=== PATIENT | male | born 1990 ===

== ENCOUNTER 2017-09-29 23:40 | Emergency (ER) | payer BC ==
[~2017-09-29] VITALS: Ht 185.4 cm; Wt 79.6 kg
[2017-09-29 23:43] VITALS: TEMP 36.8; Ht 185.4 cm; Wt 79.6 kg
[2017-09-30] MEDS ORDERED: MULT1PAK42 PO (00:08)
[2017-09-30] MEDS ORDERED: ONDANSETRON INJ 2 MG/ML 2 ML VIAL IV STA ×2 (00:15→01:23)
[2017-09-30] MEDS ORDERED: SODIUM CHLORIDE 0.9% 1000ML 1,000 ML IV STA ×2 (00:15→01:21)
--- NOTE | 2017-09-30 00:17 | EMERGENCY ROOM VISIT NOTE ---
History Report prepared by Hyun: Kendra Lobo Under the Supervision of: Dr. Rochelle Andre D.O. First contact with patient: 23:50 Chief Complaint: VOMITING Stated Complaint: THROWING UP MULTIPLE TIMES,DIZZY,DIARRHEA History of Present Illness The patient is a 27 year old male who presents to the Emergency Room with complaints of intermittent vomiting beginning at 7 pm last night, about five hours ago. The patient reports his first episode of vomiting at 7pm was so aggressive that he collapsed and couldn't hear until the episode was over. He has been vomiting every 20 minutes since the first episode. He reports diarrhea beginning three hours ago. He denies any recent sick contact. He notes chills and nausea but denies any fever, abdominal pain, sore throat, cough, urinary symptoms, or leg cramping. The patient is a law student. Source of History: patient Onset: five hours ago Position: other (generalized) Quality: other (vomiting) Timing: intermittent Associated Symptoms: + chills, + nausea, + vomiting, No fevers, No sorethroat, No cough, No abdominal pain, No diarrhea, No urinary symptoms Review of Systems See HPI for pertinent positives & negatives. A total of 10 systems reviewed and were otherwise negative. Past Medical & Surgical Medical Problems: (1) Asthma Family History Cancer Lung disease Social History Smoking Status: Never Smoker Smokeless Tobacco Use: No Alcohol Use: occasionally Housing Status: lives with roommate Occupation Status: student Current/Historical Medications Scheduled PRN Multiple Vitamins W/ Minerals (Emergen-C Immune), 1 DOSE PO DIRECTED PRN for COLD SEASON Allergies Coded Allergies: No Known Allergies (Unverified , 09/30/17) Physical Exam Vital Signs Date Time Temp Pulse Resp B/P (MAP) Pulse Ox O2 Delivery O2 Flow Rate FiO2 09/30/17 06:40 84 18 115/70 98 09/30/17 05:19 78 18 111/58 98 Room Air 09/30/17 03:24 105/58 09/30/17 01:18 75 16 131/70 98 Room Air 09/29/17 23:43 36.8 93 16 119/70 99 Room Air Physical Exam HEENT: Head - normocephalic and atraumatic Pupils are equal, round, and reactive to light. Extraocular eye muscles are intact, and sclera are anicteric. Nose - moist nasal mucosa without discharge. Mouth - moist buccal mucosa. Oropharynx is nonerythematous and there is no tonsillar exudate or edema noted. Neck: Supple; no JVD, nuchal rigidity, cervical lymphadenopathy. Heart: Regular rate and rhythm. There is a normal S1 and S2 with no murmurs, clicks, or gallops appreciated. Lungs: Clear to auscultation bilaterally with no wheezes, rales, or rhonchi. Abdomen: Soft, completely nontender, nondistended, with good bowel sounds. There are no palpable pulsatile masses or hepatosplenomegaly. There is no guarding, rigidity, or rebound noted. Extremities: No evidence of cyanosis, clubbing, or edema. There are easily palpable peripheral pulses. Skin: pale and diaphoretic, with good turgor and no rashes. Medical Decision & Procedures Laboratory Results 09/30/17 00:00 Red Blood Count 6.17, Mean Corpuscular Volume 84.1, Mean Corpuscular Hemoglobin 30.0, Mean Corpuscular Hemoglobin Concent 35.6, Mean Platelet Volume 11.7, Neutrophils (%) (Auto) 90.1, Lymphocytes (%) (Auto) 3.0, Monocytes (%) (Auto) 6.4, Eosinophils (%) (Auto) 0.2, Basophils (%) (Auto) 0.1, Neutrophils # (Auto) 14.66, Lymphocytes # (Auto) 0.49, Monocytes # (Auto) 1.04, Eosinophils # (Auto) 0.04, Basophils # (Auto) 0.01 09/30/17 00:00 Test 09/30/17 00:00 09/30/17 00:25 White Blood Count 16.27 K/uL (4.8-10.8) Red Blood Count 6.17 M/uL (4.7-6.1) Hemoglobin 18.5 g/dL (14.0-18.0) Hematocrit 51.9 % (42-52) Mean Corpuscular Volume 84.1 fL (80-100) Mean Corpuscular Hemoglobin 30.0 pg (25-34) Mean Corpuscular Hemoglobin Concent 35.6 g/dl (32-36) Platelet Count 267 K/uL (130-400) Mean Platelet Volume 11.7 fL (7.4-10.4) Neutrophils (%) (Auto) 90.1 % Lymphocytes (%) (Auto) 3.0 % Monocytes (%) (Auto) 6.4 % Eosinophils (%) (Auto) 0.2 % Basophils (%) (Auto) 0.1 % Neutrophils # (Auto) 14.66 K/uL (1.4-6.5) Lymphocytes # (Auto) 0.49 K/uL (1.2-3.4) Monocytes # (Auto) 1.04 K/uL (0.11-0.59) Eosinophils # (Auto) 0.04 K/uL (0-0.5) Basophils # (Auto) 0.01 K/uL (0-0.2) RDW Standard Deviation 39.4 fL (36.4-46.3) RDW Coefficient of Variation 12.9 % (11.5-14.5) Immature Granulocyte % (Auto) 0.2 % Immature Granulocyte # (Auto) 0.03 K/uL (0.00-0.02) Anion Gap 8.0 mmol/L (3-11) Est Creatinine Clear Calc Drug Dose 90.2 ml/min Estimated GFR () 79.7 Estimated GFR (Non- 68.7 BUN/Creatinine Ratio 12.9 (10-20) Calcium Level 9.1 mg/dl (8.5-10.1) Total Bilirubin 1.2 mg/dl (0.2-1) Aspartate Amino Transf (AST/SGOT) 12 U/L (15-37) Alanine Aminotransferase (ALT/SGPT) 22 U/L (12-78) Alkaline Phosphatase 72 U/L (45-117) Total Protein 8.1 gm/dl (6.4-8.2) Albumin 5.0 gm/dl (3.4-5.0) Globulin 3.1 gm/dl (2.5-4.0) Albumin/Globulin Ratio 1.6 (0.9-2) Lipase 66 U/L (73-393) Urine Color DK YELLOW Urine Appearance CLEAR (CLEAR) Urine pH 5.5 (4.5-7.5) Urine Specific [place] 1.032 (1.000-1.030) Urine Protein NEG (NEG) Urine Glucose (UA) NEG (NEG) Urine Ketones 2+ (NEG) Urine Occult Blood NEG (NEG) Urine Nitrite NEG (NEG) Urine Bilirubin NEG (NEG) Urine Urobilinogen NEG (NEG) Urine Leukocyte Esterase TRACE (NEG) Urine WBC (Auto) 1-5 /hpf (0-5) Urine RBC (Auto) 0-4 /hpf (0-4) Urine Hyaline Casts (Auto) 1-5 /lpf (0-5) Urine Epithelial Cells (Auto) 5-10 /lpf (0-5) Urine Bacteria (Auto) NEG (NEG) Laboratory results per my review. Medications Administered Medications (Trade) Dose Ordered Sig/J Carlos Route Start Time Stop Time Status Last Admin Dose Admin Sodium Chloride 1,000 ml @ 999 mls/hr Q1H1M STAT IV 09/30/17 00:15 09/30/17 01:15 DC 09/30/17 00:24 999 MLS/HR Ondansetron HCl (Zofran Inj) 4 mg NOW STAT IV 09/30/17 00:15 09/30/17 00:16 DC 09/30/17 00:24 4 MG Sodium Chloride 1,000 ml @ 999 mls/hr Q1H1M STAT IV 09/30/17 01:21 09/30/17 02:21 DC 09/30/17 01:28 999 MLS/HR Ondansetron HCl (Zofran Inj) 4 mg NOW STAT IV 09/30/17 01:23 09/30/17 01:24 DC 09/30/17 01:28 4 MG Ondansetron HCl (ZOFRAN ODT 4MG Home Pack) 1 homepack UD ONCE PO 09/30/17 03:30 09/30/17 03:31 DC 09/30/17 06:37 1 HOMEPACK Promethazine HCl 12.5 mg/Sodium Chloride 50.5 ml @ 204 mls/hr NOW STAT IV 09/30/17 03:51 09/30/17 04:05 DC 09/30/17 04:03 204 MLS/HR Procedure Zofran Inj IV, NSS IV, Promethazine HCl 12.5 mg/Sodium Chloride IV ED Course 0006: Past medical records reviewed. The patient was evaluated in room A10. A complete history and physical exam was performed. Laboratory studies were drawn as above. 0015: Ordered Zofran Inj 4 mg IV, Sodium Chloride 1000 ml @ 999 mls/hr IV. 0028: the patient was able to provide a stool specimen. 0121: Ordered Sodium Chloride 1000 ml @ 999 mls/hr IV. 0122: On reassessment, the patient reports he was feeling much better; however, he is just starting to feel nauseated again. 0123: Ordered Zofran Inj 4 mg IV. 0204: The patient is sleeping. 0230: The patient is awake. He will try water and crackers. 0317: The patent was able to tolerate water however he is still nauseated. 0321: The patients's friend is in waiting room. The patient would like to go home with some nausea medication. 0330: Ordered Ondansetron HCl 1 homepack PO. 0345: On reassessment, the patient is still not feeling well. After a long discussion he would like to stay in the hospital to get his nausea under control. 0351: Ordered Promethazine HCl 12.5 mg/Sodium Chloride 50.5 ml @ 204 mls/hr. 0605: The patient was drinking water without any difficulties. He is feeling much better. 0622: The patient is ready to go home. 0631: Upon reevaluation, the patient is resting comfortably. I discussed findings and results with him. He verbalized agreement of the treatment plan. The patient was discharged home. Medical Decision The patient is a 27 year old male who presents to the Emergency Room with complaints of intermittent vomiting beginning at 7 pm last night, about five hours ago. Differential diagnosis includes gastroenteritis, food borne illness , dehydration, and electrolyte abnormality. Lab results show: urinalysis 2+ ketones with trace leukoesterase, negative bacteria or white blood cells, lipase 66, total bilirubin 1.2, transaminases are normal, BUN 18, creatinine 1.4, glucose 125, white blood cell count 16.2, hemoglobin 18.9, 90% neutrophils. Gram stain stool, no white blood cells seen, moderate mixed fecal rocael. This is a 27-year-old male patient presents to the emergency department with vomiting and diarrhea. The patient's symptoms were fairly sudden in onset. The patient was able to provide a stool specimen here in the emergency department which revealed no obvious white blood cells. This will go for culture. Patient had no further episodes of vomiting while here in the emergency department. He was given IV crystalloid therapy along with anti- emetics. Prior to discharge, the patient was able to drink without difficulty and is feeling well. He will follow-up with his PCP for recheck later today if symptoms persist. If symptoms worsen, he was directed to return here to the ER. Medication Reconcilliation Current Medication List: was personally reviewed by me Blood Pressure Screening Patient's blood pressure: Normal blood pressure Impression Primary Impression: Vomiting and diarrhea Scribe Attestation The scribe's documentation has been prepared under my direction and personally reviewed by me in its entirety. I confirm that the note above accurately reflects all work, treatment, procedures, and medical decision making performed by me. Departure Information Dispostion Home / Self-Care Referrals No Doctor, Assigned (PCP) Forms HOME CARE DOCUMENTATION FORM, IMPORTANT VISIT INFORMATION Patient Instructions My [facility], Vomit Diarrhea Self Care Additional Instructions Rest take plenty of clear liquids and a bland diet Return to the ER for any worsening symptoms
[2017-09-30 00:48] LABS: BASO % 0.1 %; BASO ABS # 0.01 K/uL (0-0.2); EOS % 0.2 %; EOS ABS # 0.04 K/uL (0-0.5); HEMATOCRIT 51.9 % (42-52); HEMOGLOBIN 18.5 g/dL (14.0-18.0); IG# 0.03 K/uL (0.00-0.02); LYMPH ABS # 0.49 K/uL (1.2-3.4); MEAN CELL VOLUME 84.1 fL (80-100); MEAN CORPUSCULAR HGB CONC 35.6 g/dl (32-36); MEAN PLATELET VOLUME 11.7 fL (7.4-10.4); MONO % 6.4 %; MONO ABS # 1.04 K/uL (0.11-0.59); NEUT % 90.1 %; NEUT ABS # 14.66 K/uL (1.4-6.5); PLATELET COUNT 267 K/uL (130-400); RED CELL DISTRIBUTION WIDTH CV 12.9 % (11.5-14.5); RED CELL DISTRIBUTION WIDTH SD 39.4 fL (36.4-46.3); WHITE BLOOD COUNT 16.27 K/uL (4.8-10.8)
[2017-09-30 00:56] LABS: CALCIUM 9.1 mg/dl (8.5-10.1); CREATININE 1.41 mg/dl (0.60-1.40)
[2017-09-30 00:58] LABS: TOTAL PROTEIN 8.1 gm/dl (6.4-8.2)
[2017-09-30] MEDS ORDERED: ONDANSETRON HOME PACK 4MG OD TAB PO ONE (03:30)
[2017-09-30] MEDS ORDERED: PROMETHAZINE HCL INJ 12.5 MG in SODIUM CHLORIDE 0.9% 50ML 50 ML IV STA (03:51)
[2017-09-30] MEDS ORDERED: ONDANSETRON HOME PACK 4MG OD TAB ONE (06:33)
[2017-09-30 06:40] VITALS: BP 115/70; PULSE 84; O2SAT 98
== END 2017-09-30 06:42 | disposition home or self-care (01) ==
LOC: C.EDB 23:42 → C.EDA 09-30 06:42
DX: R11.10 Vomiting, unspecified (principal); R19.7 Diarrhea, unspecified; J45.909 Unspecified asthma, uncomplicated